=== PATIENT | male | born 1990 | race Caucasian/White ===

== ENCOUNTER 2017-08-31 19:42 | Emergency (ER) | payer BC ==
[2017-08-31 19:52] VITALS: BP 163/91
--- NOTE | 2017-08-31 21:34 | EDM.PDOC ---
ED HPI GENERAL MEDICAL PROBLEM - General Chief Complaint: Lower Extremity Injury/Pain Stated Complaint: LEG PAIN Time Seen by Provider: 08/31/17 19:51 Source of Information: Reports: Patient History Limitations: Reports: No Limitations - History of Present Illness INITIAL COMMENTS - FREE TEXT/NARRATIVE: The patient presents with right leg pain and edema. He says he fell in a hole and banged his right lower leg. There was moderate pain. It was getting better until yesterday. He has more pain and swelling. He now has some redness with some drainage. He can walk on it. He has no history of DVT or PE. He has no fever or chills. He has no chest pain or shortness of breath. Onset: Sudden Duration: Day(s): (4) Location: Reports: Lower Extremity, Right (edema pain and erythema) Quality: Reports: Sharp Severity: Moderate Improves with: Reports: Immobilization Worsens with: Reports: Movement Associated Symptoms: Reports: No Other Symptoms right lower extremity Pain Score (Numeric/FACES): 8 - Related Data Allergies Allergy/AdvReac Type Severity Reaction Status Date / Time Sulfa (Sulfonamide Allergy Hives Verified 08/31/17 19:52 Antibiotics) Home Meds: Home Meds Appetite Suppressant 1 tab PO DAILY 08/31/17 [History] Doxycycline [Vibramycin] 100 mg PO BID #19 cap 08/31/17 [Rx] Doxycycline [Vibramycin] 100 mg PO BID #9 cap 08/31/17 [Rx] Eszopiclone [Lunesta] 3 mg PO DAILY 08/31/17 [History] Past Medical History - Past Health History Medical/Surgical History: Denies Medical/Surgical History Other Psychiatric History: insomnia Endocrine/Metabolic History: Reports: Obesity/BMI 30+ Social & Family History - Tobacco Use Smoking Status *Q: Never Smoker - Caffeine Use Caffeine Use: Reports: Soda - Recreational Drug Use Recreational Drug Use: No Review of Systems - Review of Systems Review Of Systems: See Below Constitutional: Reports: No Symptoms Eyes: Reports: No Symptoms Ears: Reports: No Symptoms Nose: Reports: No Symptoms Mouth/Throat: Reports: No Symptoms Respiratory: Reports: No Symptoms Cardiovascular: Reports: No Symptoms GI/Abdominal: Reports: No Symptoms Genitourinary: Reports: No Symptoms Musculoskeletal: Reports: Other (Edema and pain to the right leg) ED EXAM, GENERAL - Physical Exam Exam: See Below Exam Limited By: No Limitations General Appearance: Alert, No Apparent Distress Ears: Normal External Exam Nose: Normal Inspection Head: Atraumatic, Normocephalic Neck: Normal Inspection Respiratory/Chest: No Respiratory Distress, Lungs Clear, Normal Breath Sounds Cardiovascular: Regular Rate, Rhythm, No Edema, No Murmur GI/Abdominal: Soft, Non-Tender, No Organomegaly, No Mass Extremities: Other (Moderate edema to the right lower leg with ecchymosis. Abrasion to the upper lower leg with erythema and edema. Good sensation and pulses distally.) Course - Vital Signs Last Recorded V/S: Last Vital Signs Temp 97.7 F 08/31/17 19:47 Pulse 66 08/31/17 19:47 Resp 18 08/31/17 19:47 BP 163/91 H 08/31/17 19:47 Pulse Ox 99 08/31/17 19:47 - Orders/Labs/Meds Orders: Active Orders 24 hr Category Date Time Status Tibia Fibula Rt [CR] Stat Exams 08/31/17 20:04 Taken VL Duplex Lwr Ext Veins Ltd Rt [US] Stat Exams 08/31/17 20:04 Ordered CULTURE ANAEROBIC + SMEAR [RM] Stat Lab 08/31/17 20:00 Received - Re-Assessments/Exams Free Text/Narrative Re-Assessment/Exam: 08/31/17 21:36 I have ordered an x-ray, US to look for DVT and my nurse was able to get a sample of the drainage from the leg. I have ordered a culture. His x-ray looks good. I am waiting for the US. 08/31/17 22:06 The US shows no DVT. He has cellulitis. I will give him a dose of doxycycline here and a prescription for more. Departure - Departure Time of Disposition: 22:10 Disposition: Home, Self-Care 01 Condition: Good Clinical Impression: Cellulitis of right lower leg Contusion of right lower leg Qualifiers: Encounter type: initial encounter Qualified Code(s): S80.11XA - Contusion of right lower leg, initial encounter - Discharge Information Prescriptions: Doxycycline [Vibramycin] 100 mg PO BID #9 cap Doxycycline [Vibramycin] 100 mg PO BID #19 cap Referrals: PCP,Not In Area [Primary Care Provider] - Megha River PA-C [Physician Executive Manager] - 1 Week Forms: ED Department Discharge Additional Instructions: Take the doxycycline 1 pill 2 times per day. Put warm compresses on your leg 2 to 3 times per day and try to elevate it a couple times per day. Please return if you are worse. - My Orders Last 24 Hours: My Active Orders 08/31/17 20:00 CULTURE ANAEROBIC + SMEAR [RM] Stat 08/31/17 20:04 Tibia Fibula Rt [CR] Stat VL Duplex Lwr Ext Veins Ltd Rt [US] Stat - Assessment/Plan Last 24 Hours: My Active Orders 08/31/17 20:00 CULTURE ANAEROBIC + SMEAR [RM] Stat 08/31/17 20:04 Tibia Fibula Rt [CR] Stat VL Duplex Lwr Ext Veins Ltd Rt [US] Stat
[2017-08-31] MEDS ORDERED: Doxycycline 100 MG Cap PO ONE (22:08)
--- NOTE | 2017-09-01 09:14 | CR ---
Right tibia and fibula: AP and lateral views of the right tibia and fibula were obtained. Comparison: No previous study. No fracture or other abnormality is seen. Impression: 1. No abnormality is seen on right tibia and fibula study. Diagnostic code #1
--- NOTE | 2017-09-01 09:14 | US ---
Right lower extremity deep venous ultrasound: Duplex and color flow imaging was obtained of the right common femoral, proximal greater saphenous, superficial femoral, popliteal, posterior tibial and peroneal veins. Left common femoral vein was also evaluated. Normal phasic flow, augmentation and compression is seen. Incidental right inguinal lymph node is noted. Minimal edema is noted within the right calf. Impression: 1. Minimal edema within the right calf. No evidence of deep venous thrombosis within the right lower extremity or within the left common femoral vein. Diagnostic code #2
== END 2017-08-31 22:25 | disposition home or self-care (01) ==
LOC: JD.ED 19:42
DX: S80.11XA Contusion of right lower leg, initial encounter (principal); L03.115 Cellulitis of right lower limb; Z88.2 Allergy status to sulfonamides; E66.9 Obesity, unspecified; X58.XXXA Exposure to other specified factors, initial encounter
CPT/HCPCS: 73590; 87075; 87205; 93971; 99284; A9270; 99283